=== PATIENT | female | born 1960 | race Caucasian/White ===

== ENCOUNTER 2018-09-17 17:28 | Emergency (ER) | payer BC ==
[2018-09-17] MEDS: Morphine 4 MG/ML VIAL (1 ml) 4 MG/ML VIAL IV ONE (18:06)
--- NOTE | 2018-09-17 18:09 | ED ---
Upper Extremity Pain - HPI Summary HPI Summary: 58-year-old female presents with left wrist injury today. States she slipped and fell onto her left wrist. She denies any elbow pain. No other injury. Has a previous fractured to this wrist. Is right-handed. Has no medical conditions. - History of Current Complaint Chief Complaint: EDExtremityUpper Stated Complaint: BROKE WRIST POSSIBLY PER PT Time Seen by Provider: 09/17/18 17:41 - Allergies/Home Medications Allergies/Adverse Reactions: Allergies Allergy/AdvReac Type Severity Reaction Status Date / Time Sulfa (Sulfonamide Allergy Rash Verified 09/17/18 17:33 Antibiotics) PMH/Surg Hx/FS Hx/Imm Hx Endocrine/Hematology History: Denies: Hx Diabetes, Hx Thyroid Disease Cardiovascular History: Denies: Hx Hypertension, Hx Pacemaker/ICD Respiratory History: Denies: Hx Asthma, Hx Chronic Obstructive Pulmonary Disease (COPD) GI History: Denies: Hx Ulcer History: Denies: Hx Renal Disease Sensory History: Denies: Hx Hearing Aid Psychiatric History: Denies: Hx Panic Disorder - Cancer History Hx Chemotherapy: No Hx Radiation Therapy: No - Surgical History Surgery Procedure, Year, and Place: lypoma removed - BACK-Rt SIDE 12/04/14. Rt BREAST - LUMPECTOMY - BENIGN Infectious Disease History: No Infectious Disease History: Denies: Hx Hepatitis, Hx Human Immunodeficiency Virus (HIV), Traveled Outside the [place] in Last 30 Days - Social History Alcohol Use: Weekly Substance Use Type: Reports: None Smoking Status (MU): Never Smoked Tobacco Review of Systems Negative: Fever Negative: Chest Pain Negative: Shortness Of Breath Positive: Myalgia - left wrist pain All Other Systems Reviewed And Are Negative: Yes Physical Exam Triage Information Reviewed: Yes Vital Signs On Initial Exam: Initial Vitals Temp Pulse Resp BP Pulse Ox 98 F 0 24 000/00 0 09/17/18 17:29 09/17/18 17:29 09/17/18 17:29 09/17/18 17:29 09/17/18 17:29 Vital Signs Reviewed: Yes Appearance: Positive: Well-Appearing Skin: Positive: Warm, Dry Head/Face: Positive: Normal Head/Face Inspection Eyes: Positive: Normal, Conjunctiva Clear ENT: Positive: Pharynx normal Respiratory/Lung Sounds: Positive: Clear to Auscultation, Breath Sounds Present Cardiovascular: Positive: Normal, RRR Musculoskeletal: Positive: Limited @ - left wrist, Other - tenderness over left wrist, capillary refill<2 secs, neg snuff box tenderness, nontender elbow Neurological: Positive: Normal Psychiatric: Positive: Normal Procedures - Splinting left arm Location: left wrist Hand-Made Type: orthoglass Splint: sugar-tong Pre-Proc Neuro Vasc Exam: normal Post-Proc Neuro Vasc Exam: normal - Joint Reduction wrist Joint Reduction Site: wrist (L) Reduction Attempts: 1 - finger traps and manual Post Joint Reduction Film: aligment better Diagnostics - Vital Signs Vital Signs Temp Pulse Resp BP Pulse Ox 09/17/18 18:06 22 09/17/18 17:29 98 F 0 24 000/00 0 - Laboratory Lab Statement: Any lab studies that have been ordered have been reviewed, and results considered in the medical decision making process. - Radiology wrist Radiology Interpretation Completed By: ED Physician Summary of Radiographic Findings: radius and ulna fracture Re-Evaluation - Re-Evaluation First Eval Re-Evaluation Time: 21:08 Comment: patient states josefina are too tight so rewrapped them Course/Dx - Course Course Of Treatment: 58-year-old female presents with left wrist injury today. States she slipped and fell onto her left wrist. She denies any elbow pain. No other injury. Has a previous fractured to this wrist. Is right-handed. Has no medical conditions. On exam has tenderness over left wrist. deformity noted to left wrist . Neurovascular intact. X-ray shows radius and ulna styloid fracture. performed digital block and finger traps and fracture is improved. patient is going out of town so will have follow up with dr Newton tomorrow. told to ice and elevate. patient understand and agrees with plan. - Diagnoses Differential Diagnosis/HQI/PQRI: Positive: Fracture (Closed), Strain, Sprain Provider Diagnoses: Fracture of radius with ulna, left, closed Discharge - Sign-Out/Discharge Documenting (check all that apply): Patient Departure Patient Received Moderate/Deep Sedation with Procedure: No - Discharge Plan Condition: Good Disposition: HOME Prescriptions: oxyCODONE/Acetamin 5/325 MG* [Percocet 5/325 TAB*] 1 tab PO Q6H PRN #20 tab MDD 4 PRN Reason: Pain Patient Education Materials: Wrist Fracture in Adults (ED) Referrals: Quang Morel MD [Primary Care Provider] - Sabrina Newton MD [Medical Doctor] - Additional Instructions: Keep elbow in sling as needed Keep splint on area and keep dry Call ortho office tomorrow to set up appointment for follow up Use ibuprofen for pain every 6 hours and use percocet for breakthrough pain every 6 hours Ice, elevate Return to ED if develop any new or worsening symptoms - Billing Disposition and Condition Condition: GOOD Disposition: Home
[2018-09-17] MEDS: fentaNYL* 50 MCG/ML 2 ML VIAL (100 MCG VIAL) IV SLOW PU ONE (19:00)
[2018-09-17] MEDS: Lidocaine 2% EPI 1:200000 MPF*10-20 ML VIAL INJ ONE (20:38)
[2018-09-17 21:44] VITALS: BP 121/84
== END 2018-09-17 21:43 | disposition home or self-care (01) ==
LOC: ED 17:28
DX: S52.502A Unspecified fracture of the lower end of left radius, initial encounter for closed fracture (principal); S52.612A Displaced fracture of left ulna styloid process, initial encounter for closed fracture; W01.0XXA Fall on same level from slipping, tripping and stumbling without subsequent striking against object, initial encounter
CPT/HCPCS: 96374; 96375; 99282; J2270; J3010